=== PATIENT | female | born 1960 | race Caucasian/White ===

== ENCOUNTER → 2016-08-23 | Outpatient (CLI) | payer OTHER ==
[~2016-08-23] MED LIST: LISI-461 PO; LRT5 PO
[2016-08-23 09:35] LABS: BASO % 0.2 %; BASO ABS # 0.01 K/uL (0-0.2); COMPLETE YES; EOS % 3.9 %; HEMATOCRIT 42.8 % (37-47); IG% 0.2 %; LYMPH % 33.5 %; LYMPH ABS # 1.63 K/uL (1.2-3.4); MEAN CELL VOLUME 91.6 fL (80-100); MEAN CORPUSCULAR HEMOGLOBIN 30.4 pg (25-34); MEAN CORPUSCULAR HGB CONC 33.2 g/dl (32-36); MEAN PLATELET VOLUME 10.2 fL (7.4-10.4); MONO % 9.4 %; NEUT % 52.8 %; PLATELET COUNT 267 K/uL (130-400); RED BLOOD COUNT 4.67 M/uL (4.2-5.4); WHITE BLOOD COUNT 4.87 K/uL (4.8-10.8)
[2016-08-23 09:41] LABS: URINE APPEARANCE TURBID (CLEAR); URINE BILIRUBIN NEG (NEG); URINE COLOR DK YELLOW; URINE EPITHELIAL CELL AUTO >30 /lpf (0-5); URINE NITRITE NEG (NEG); URINE SPECIFIC GRAVITY 1.025 (1.000-1.030); UROBILINOGEN NEG (NEG)
[2016-08-23 09:43] LABS: MANUAL MICROSCOPIC REQUIRED? NO; REVIEW REQ? YES
[2016-08-23 09:47] LABS: ALT/SGPT 37 U/L (12-78); AST/SGOT 20 U/L (15-37); BLOOD UREA NITROGEN 10 mg/dl (7-18); BUN/CREATININE RATIO 14.2 (10-20); CARBON DIOXIDE 28 mmol/L (21-32); CHLORIDE 109 mmol/L (98-107); CREATININE 0.71 mg/dl (0.60-1.20); GLUCOSE 111 mg/dl (70-99); POTASSIUM 3.9 mmol/L (3.5-5.1); SODIUM 143 mmol/L (136-145)
[2016-08-23 09:58] LABS: CHOLESTEROL 237 mg/dl (0-200); HDL CHOLESTEROL 60 mg/dl; LDL CHOLESTEROL CALCULATED 134 mg/dl; TRIGLYCERIDES 215 mg/dl (0-150); VERY LOW DENSITY LIPOPROT CALC 43 mg/dl
[2016-08-23 09:59] LABS: ESTIMATED AVERAGE GLUCOSE 111 mg/dl; HA1C FLAG Normal (Normal)
== END | disposition home or self-care (01) ==
LOC: C.LAB1850 07:03
PROVIDERS: ATTEND Internal Medicine
DX: E78.00 Pure hypercholesterolemia, unspecified (principal)

== ENCOUNTER → 2016-09-15 | Outpatient (CLI) | payer OTHER, BC ==
--- NOTE | 2016-09-18 07:43 | MAMMOGRAPHY REPORT ---
BILATERAL DIGITAL SCREENING MAMMOGRAM TOMOSYNTHESIS WITH CAD: 09/15/2016 CLINICAL HISTORY: Routine screening. Patient has no complaints. TECHNIQUE: Breast tomosynthesis in addition to standard 2D mammography was performed. Current study was also evaluated with a Computer Aided Detection (CAD) system. COMPARISON: Comparison is made to exams dated: 01/22/2015 mammogram, 01/21/2014 mammogram, 12/04/2012 mammogram, 12/04/2011 mammogram, 11/30/2010 mammogram, and 11/29/2009 mammogram - [facility]. BREAST COMPOSITION: The tissue of both breasts is heterogeneously dense, which may obscure small mas ses. FINDINGS: No suspicious masses, calcifications, or areas of architectural distortion are noted in ei ther breast. There has been no significant interval change compared to prior exams. IMPRESSION: ACR BI-RADS CATEGORY 1: NEGATIVE There is no mammographic evidence of malignancy. A 1 year screening mammogram is recommended. The pa tient will receive written notification of the results. Approximately 10% of breast cancers are not detected with mammography. A negative mammographic report should not delay biopsy if a clinically suggestive mass is present. Consuelo Kc M.D. ah/:09/15/2016 15:33:50 Title Vehicle Service Attendant: Dana BLEDSOE(Dedrick)(M), [facility] letter sent: Normal 1/2 BI-RADS Code: ACR BI-RADS Category 1: Negative
== END | disposition home or self-care (01) ==
LOC: C.MAMM 14:34
PROVIDERS: ATTEND Internal Medicine
DX: Z12.31 Encounter for screening mammogram for malignant neoplasm of breast (principal)

== ENCOUNTER 2017-02-19 10:22 | Emergency (ER) | payer OTHER, BC ==
[~2017-02-19] VITALS: Ht 167.6 cm; Wt 72.2 kg
[2017-02-19 10:35] VITALS: TEMP 36.8; Ht 167.6 cm; Wt 72.2 kg
--- NOTE | 2017-02-19 11:00 | EMERGENCY ROOM VISIT NOTE ---
History Report prepared by Lachelleibfanta: Cindy Ruelas Under the Supervision of: Dr. Zachery Curran D.O. First contact with patient: 10:39 Chief Complaint: FLU LIKE SX Stated Complaint: STOMACH FLU,HEAD COLD,EXCESSIVE COUGHING History of Present Illness The patient is a 56 year old female who presents to the Emergency Room with complaints of persistent flu like symptoms for the past 5 days. She reports right before Theo, she came down with the stomach flu. She experienced nausea, vomiting and diarrhea. Those symptoms have resolved, but 5 days prior to arrival, she developed flu-like symptoms including a cough, congestion, sore throat and the chills. Robitussin has provided minimal relief. She denies any recent sick contacts. She has experienced no chest pain or shortness of breath. The patient states her only daily medication is for hypertension. 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 A total of 10 systems reviewed and were otherwise negative. Past Medical & Surgical Medical Problems: (1) Hypertension Social History Smoking Status: Never Smoker Alcohol Use: occasionally Drug Use: none Marital Status: Housing Status: lives with family Occupation Status: employed Current/Historical Medications Scheduled Azithromycin (Zithromax), 250 MG PO DAILY Lisinopril (Zestril), 10 MG PO DAILY Scheduled PRN Guaifenesin/Codeine (Robitussin-Ac Syrup), 10 ML PO Q4H PRN for Cough Allergies Coded Allergies: No Known Allergies (Unverified , 02/19/17) Physical Exam Vital Signs Date Time Temp Pulse Resp B/P (MAP) Pulse Ox O2 Delivery O2 Flow Rate FiO2 02/19/17 12:22 88 16 115/76 98 02/19/17 11:30 82 20 140/65 97 Room Air 02/19/17 10:35 36.8 83 20 140/78 96 Room Air Physical Exam GENERAL: Patient is awake, alert, in no acute distress, patient is resting comfortably and showing no signs of anxiety EYES: The conjunctivae are clear. The pupils are round and reactive. EARS, NOSE, MOUTH AND THROAT: The nose is without any evidence of any deformity. Mucous membranes are moist tongue is midline NECK: The neck is nontender and supple. RESPIRATORY: Normal respiratory effort is noted there is no evidence of wheezing rhonchi or rales CARDIOVASCULAR: Regular rate and rhythm noted there no murmurs rubs or gallops normal S1 normal S2 GASTROINTESTINAL: The abdomen is soft. Bowel sounds are present in all quadrants. Abdomen is nontender MUSCULOSKELETAL/EXTREMITIES: There is no evidence of gross deformity full range of motion is noted in the hips and shoulders SKIN: There is no obvious evidence of any rash. There are no petechiae, pallor or cyanosis noted. NEUROLOGIC: Patient is awake alert and oriented x3 Medical Decision & Procedures ER Provider Diagnostic Interpretation: Radiology results as stated below per my review and radiologist interpretation: TWO VIEW CHEST CLINICAL HISTORY: Cough. FINDINGS: PA and lateral chest radiographs are obtained. No prior studies are available for comparison at the time of dictation. The cardiomediastinal silhouette is unremarkable. There is minimal bibasilar atelectasis. The lungs and pleural spaces are otherwise clear. There is no pneumothorax. The bony thorax appears intact. IMPRESSION: No active disease in the chest. Electronically signed by: Art Vance M.D. 02/19/2017 11:30 AM Laboratory Results Test 02/19/17 11:22 Influenza Type A Antigen Neg for Influ A (NEG) Influenza Type B Antigen Neg for Influ B (NEG) Laboratory results per my review. Medications Administered Medications (Trade) Dose Ordered Sig/Pati Route Start Time Stop Time Status Last Admin Dose Admin Azithromycin (Zithromax Tab) 500 mg STK-MED ONCE .ROUTE 02/19/17 12:17 02/19/17 12:18 DC 02/19/17 12:18 500 MG ED Course 1054: The patient was evaluated in room C3. A complete history and physical examination were performed. 1217: Zithromax 500 mg PO. 1220: I reevaluated the patient. She is resting comfortably. I discussed her results and discharge instructions and she verbalized complete understanding and agreement. Medical Decision The patient is a 56-year-old female who presented to the emergency department for an evaluation of cough and upper respiratory symptoms. The patient states that she had sinus congestion as well as cough. The patient's chest x-ray did not show signs of pneumonia. The patient's flu swab was negative. I started the patient on a course of Zithromax. She was encouraged to continue using Motrin and Tylenol for pain and consider using a nasal spray such as Flonase. Otherwise she was encouraged to follow-up with her primary care physician for further evaluation but return to the emergency department immediately if symptoms change worsen or the need arises. Medication Reconcilliation Current Medication List: was personally reviewed by me Blood Pressure Screening Patient's blood pressure: Elevated blood pressure Blood pressure disposition: Elevated BP felt to be situational Impression Primary Impression: Acute bronchitis Scribe Attestation The scribe's documentation has been prepared under my direction and personally reviewed by me in its entirety. I confirm that the note above accurately reflects all work, treatment, procedures, and medical decision making performed by me. Departure Information Dispostion Home / Self-Care Prescriptions Azithromycin (ZITHROMAX) 250 Mg Tab 250 MG PO DAILY, #4 TAB Prov: Zachery Curran, 02/19/17 Referrals Roscoe Soto M.D. (PCP) Patient Instructions Bronchitis Acute, My [facility] Additional Instructions Continue using Motrin and Tylenol as directed for pain. Call your family to schedule a follow-up appointment. Consider using a nasal spray such as Flonase for congestion.
[2017-02-19] MEDS ORDERED: GUAISYP4 PO (11:12)
--- NOTE | 2017-02-19 11:31 | DIAGNOSTIC IMAGING REPORT ---
TWO VIEW CHEST CLINICAL HISTORY: Cough. FINDINGS: PA and lateral chest radiographs are obtained. No prior studies are available for comparison at the time of dictation. The cardiomediastinal silhouette is unremarkable. There is minimal bibasilar atelectasis. The lungs and pleural spaces are otherwise clear. There is no pneumothorax. The bony thorax appears intact. IMPRESSION: No active disease in the chest. Electronically signed by: Art Vance M.D. 02/19/2017 11:30 AM Dictated Date/Time: 02/19/2017 11:27 AM
[2017-02-19 12:06] LABS: INFLUENZA B ANTIGEN Neg for Influ B (NEG)
[2017-02-19] MEDS ORDERED: AZIT250T PO (12:11)
[2017-02-19] MEDS ORDERED: AZITHROMYCIN 250 MG TAB ONE (12:17)
[2017-02-19 12:22] VITALS: BP 115/76; PULSE 88; O2SAT 98
[2017-02-19 12:44] LABS: INFLUENZA A PCR Neg for Influ A (NEG); INFLUENZA B PCR Neg for Influ B (NEG)
[2017-04-10] MEDS ORDERED: MULT-506 PO (09:08)
[2017-07-16] MEDS ORDERED: ONDA4TAB46 PO (16:15)
[2017-07-16] MEDS ORDERED: TAMS0.4C38 PO (16:15)
[2017-07-16] MEDS ORDERED: OXYC-737 PO (16:15)
[2017-07-22] MEDS ORDERED: IBUP-1050 PO (04:54)
[2017-07-22] MEDS ORDERED: OXYC-737 PO (04:54)
[2017-07-22] MEDS ORDERED: ONDA4TAB46 PO (04:54)
[2017-07-22] MEDS ORDERED: TAMS0.4C38 PO (04:54)
[2017-07-22] MEDS ORDERED: CPR500 PO (12:01)
[2017-07-22] MEDS ORDERED: RXC5 PO (12:01)
== END 2017-02-19 12:22 | disposition home or self-care (01) ==
LOC: C.EDB 10:23 → C.EDC 12:22
DX: J20.9 Acute bronchitis, unspecified (principal); R19.7 Diarrhea, unspecified; I10 Essential (primary) hypertension; Z79.899 Other long term (current) drug therapy

== ENCOUNTER → 2017-04-18 | Day surgery (SDC) | payer OTHER, BC ==
[2017-04-10 09:09] VITALS: Ht 167.6 cm; Wt 71.4 kg
[~2017-04-18] VITALS: Ht 167.6 cm; Wt 71.4 kg
[~2017-04-18] MED LIST changes: +LIDOCAINE HCL 2% 2 ML VIAL (20MG/ML) ONE; -LRT5 PO; +MIDAZOLAM HCL 1 MG/ML 2ML VIAL ONE; +MULT-506 PO; +PROPOFOL IV EMULSION 10 MG/ML 20 ML VIAL IV ONE; +SODIUM CHLORIDE 0.9% 500ML 500 ML IV ONE
--- NOTE | 2017-04-18 14:22 | Endo History and Physical ---
History & Physical Date of Service: Apr 18, 2017. Chief Complaint: screening Referring Physician: Dr. Roscoe Soto History of Present Illness 56 yo CF who presents for screening colonoscopy. Past Surgical History Hx Cardiac Surgery: No Hx Internal Defibrillator: No Hx Pacemaker: No Hx Abdominal Surgery: Yes (BILATERAL TUBAL LIGATION) Hx of Implantable Prosthesis: No Hx Post-Op Nausea and Vomiting: No Hx Cancer Surgery: No Hx Thoracic Surgery: No Hx Orthopedic: No Hx Urinary Tract Surgery: No Family History None Social History Smoking Status: Never Smoker Hx Substance Use: No Hx Alcohol Use: Yes (SOCIALLY) Allergies Coded Allergies: No Known Allergies (Verified , 04/18/17) Current Medications Reported Home Medications Medications Dose Route/Sig Max Daily Dose Days Date Category Multivitamin (Multivitamins) Tab 1 Tab PO DAILY 04/10/17 Reported Zestril (Lisinopril) 10 Mg Tab 10 Mg PO QAM 09/16/06 Reported Vital Signs Weight (Kilograms): 71.36 Height (Feet): 5 Height (Inches): 6 Date Time Temp Pulse Resp B/P (MAP) Pulse Ox O2 Delivery O2 Flow Rate FiO2 04/18/17 14:17 36.7 87 18 138/81 (100) 98 Room Air Physical Exam General Appearance: WD/WN, no apparent distress Respiratory/Chest: Auscultation: breath sounds normal Cardiovascular: Heart Auscultation: RRR Abdomen: Bowel Sounds: normal Inspection & Palpation: soft, non-distended, no tenderness, guarding & rebound Assessment and Plan Assessment: 56 yo CF who presents for screening colonoscopy. Plan: Proceed with colonoscopy.
--- NOTE | 2017-04-18 15:53 | Discharge Instructions ---
Endoscopy Patient Instructions Date / Procedure(s) Performed Apr 18, 2017. Colonoscopy Allergy Information Coded Allergies: No Known Allergies (Verified , 04/18/17) Discharge Date / Findings Apr 18, 2017. Internal hemorrhoids Medication Instructions OK to resume all medications today as prescribed Reported Home Medications Medications Dose Route/Sig Max Daily Dose Days Date Category Multivitamin (Multivitamins) Tab 1 Tab PO DAILY 04/10/17 Reported Zestril (Lisinopril) 10 Mg Tab 10 Mg PO QAM 09/16/06 Reported Provider Instructions Activity Restrictions - No exercising or heavy lifting for 24 hours. - Do not drink alcohol the day of the procedure. - Do not drive a car or operate machinery until the day after the procedure. - Do not make any important decisions or sign important papers in 24 hours after the procedure. Following Day: - Return to full activity which may include returning to work/school. Diet Start your diet with liquids and light foods (jello, soup, juice, toast). Then eat your usual diet if not nauseated. Treatment For Common After Affects For mild abdominal pain, bloating, or excessive gas: - Rest - Eat lightly - Lie on right side Follow-Up Information Follow-up with Dr. Roscoe Soto as scheduled Anesthesia Information What You Should Know You have had a procedure that required some medicine to reduce anxiety and discomfort. This treatment is called moderate sedation. After receiving the treatment, you may be sleepy, but you will be able to breathe on your own. The effects of the treatment may last for several hours. Follow these instructions along with Activity/Diet recommendations noted above: * Do NOT do anything where dizziness or clumsiness would be dangerous. * Rest quietly at home today, then you can be up and about tomorrow. * Have a responsible person stay with you the rest of today. * You may have had an I.V. today. If so, you may take the dressing off later today. Recommendations Call your doctor if: * Trouble breathing * Continuous vomiting for more than 24 hours * Temperature above 101 degrees * Severe abdominal pain or bloating * Pain not relieved by pain medicine ordered * There is increased drainage or redness from any incision * A large amount of rectal bleeding greater than 2-3 tablespoons. (If you had a polyp/s removed or have hemorrhoids, a small amount of blood - from the rectum is to be expected.) * You have any unanswered questions or concerns. IN THE EVENT OF A SERIOUS EMERGENCY, GO TO THE NEAREST EMERGENCY ROOM Your discharge instructions were prepared by provider Kobe Lares. Patient Instructions Signature Page Vita Meyers Patient (or Guardian) Signature/Date: I have read and understand the instructions given to me by my caregivers. Caregiver/RN/Doctor Signature/Date: The above-named patient and/or guardian has received patient instructions on this date. + Original Patient Signature Page (only) stays with chart. Please make copy for patient.
[2017-04-18 16:21] VITALS: BP 120/71; PULSE 80; O2SAT 100
--- NOTE | 2017-04-18 16:21 | Anesthesiology Progress Note ---
Anesthesia Post Op Note Date & Time Apr 18, 2017 at 16:21 Vital Signs Pain Intensity: 0 Vital Signs Past 12 Hours Date Time Temp Pulse Resp B/P (MAP) Pulse Ox O2 Delivery O2 Flow Rate FiO2 04/18/17 16:06 89 16 122/69 (86) 98 Room Air 04/18/17 15:51 96 16 122/69 (86) 99 Room Air 04/18/17 14:17 36.7 87 18 138/81 (100) 98 Room Air Notes Mental Status: alert / awake / arousable, participated in evaluation Pt Amnestic to Procedure: Yes Nausea / Vomiting: adequately controlled Pain: adequately controlled Airway Patency, RR, SpO2: stable & adequate BP & HR: stable & adequate Hydration State: stable & adequate Anesthetic Complications: no major complications apparent
--- NOTE | 2017-04-18 16:22 | GI REPORT ---
Procedure Date: 04/18/2017 3:15 PM Procedure: Colonoscopy Indications: Screening for colorectal malignant neoplasm Medicines: Monitored Anesthesia Care Complications: No immediate complications. Estimated Blood Loss: Estimated blood loss: none. Procedure: Pre-Anesthesia Assessment: - Prior to the procedure, a History and Physical was performed, and patient medications and allergies were reviewed. The patient's tolerance of previous anesthesia was also reviewed. The risks and benefits of the procedure and the sedation options and risks were discussed with the patient. All questions were answered, and informed consent was obtained. Prior Anticoagulants: The patient has taken no previous anticoagulant or antiplatelet agents. ASA Grade Assessment: II - A patient with mild systemic disease. After reviewing the risks and benefits, the patient was deemed in satisfactory condition to undergo the procedure. After I obtained informed consent, the scope was passed under direct vision. Throughout the procedure, the patient's blood pressure, pulse, and oxygen saturations were monitored continuously. The scope was introduced through the anus and advanced to the terminal ileum. The colonoscopy was performed without difficulty. The patient tolerated the procedure well. The quality of the bowel preparation was good. The terminal ileum, ileocecal valve, appendiceal orifice, and rectum were photographed. Findings: The perianal and digital rectal examinations were normal. Non-bleeding internal hemorrhoids were found during retroflexion. The hemorrhoids were small. Impression: - Non-bleeding internal hemorrhoids. - No specimens collected. Recommendation: - Resume previous diet. - Continue present medications. - Repeat colonoscopy in 10 years for surveillance. - Return to primary care physician as previously scheduled. Kobe Lares DO 04/18/2017 4:21:54 PM This report has been signed electronically. Note Initiated On: 04/18/2017 3:15 PM I attest to the content of the Intraoperative Record and orders documented therein, exceptions below
== END | disposition home or self-care (01) ==
LOC: C.GI 13:37
PROVIDERS: ATTEND Internal Medicine
DX: Z12.11 Encounter for screening for malignant neoplasm of colon (principal); K64.8 Other hemorrhoids; I10 Essential (primary) hypertension

== ENCOUNTER → 2017-09-18 | Outpatient (CLI) | payer OTHER, BC ==
[~2017-09-18] MED LIST changes: +CPR500 PO; +IBUP-1050 PO; -LIDOCAINE HCL 2% 2 ML VIAL (20MG/ML) ONE; -MIDAZOLAM HCL 1 MG/ML 2ML VIAL ONE; +ONDA4TAB46 PO; +OXYC-737 PO; -PROPOFOL IV EMULSION 10 MG/ML 20 ML VIAL IV ONE; +RXC5 PO; -SODIUM CHLORIDE 0.9% 500ML 500 ML IV ONE; +TAMS0.4C38 PO
--- NOTE | 2017-09-19 14:54 | MAMMOGRAPHY REPORT ---
BILATERAL DIGITAL SCREENING MAMMOGRAM TOMOSYNTHESIS WITH CAD: 09/18/2017 CLINICAL HISTORY: Routine screening. Patient has no complaints. Asymmetry. TECHNIQUE: The study was acquired using full field digital technology and interpreted from soft copy. Breast tomosynthesis in addition to standard 2D mammography was performed. Current study was also ev aluated with a Computer Aided Detection (CAD) system. COMPARISON: Comparison is made to exams dated: 09/15/2016 mammogram, 01/22/2015 mammogram, 01/21/2014 m ammogram, 12/04/2012 mammogram, 12/04/2011 mammogram, and 11/30/2010 mammogram - [facility]. BREAST COMPOSITION: The tissue of both breasts is heterogeneously dense, which may obscure small mass es. FINDINGS: There is a questionable area of architectural distortion in the anterior right breast along the posterior nipple line on CC tomosynthesis slice 59/80, which could represent normal overlapping tissues although additional spot compression tomosynthesis views and possible ultrasound are recommen ded. No other suspicious mass, architectural distortion or cluster of microcalcifications is seen. IMPRESSION: ACR BI-RADS CATEGORY 0: INCOMPLETE EVALUATION: NEED ADDITIONAL IMAGING EVALUATION The questionable area of architectural distortion in the anterior right breast on the CC tomosynthesi s images needs additional evaluation. The patient will be called to schedule an appointment. Some breast cancers are not detected with mammography. A negative mammographic report should not willy y biopsy if a clinically suggestive mass is present. Ale Livingston M.D. ay/:09/18/2017 16:25:52 Landscape Account Manager: RT Chiquita(R)(M), [facility] letter sent: Addl Imaging 0 BI-RADS Code: ACR BI-RADS Category 0: Incomplete Evaluation: Need Additional Imaging Evaluation
== END | disposition home or self-care (01) ==
LOC: C.MAMM 12:17
PROVIDERS: ATTEND Internal Medicine
DX: Z12.31 Encounter for screening mammogram for malignant neoplasm of breast (principal); N64.89 Other specified disorders of breast

== ENCOUNTER → 2017-09-27 | Outpatient (CLI) | payer OTHER, BC ==
--- NOTE | 2017-09-27 15:14 | MAMMOGRAPHY REPORT ---
UNILATERAL RIGHT DIGITAL DIAGNOSTIC MAMMOGRAM TOMOSYNTHESIS: 09/27/2017 CLINICAL HISTORY: Callback from screening mammogram for possible right breast architectural distortio n. TECHNIQUE: The study was acquired using full field digital technology and interpreted from soft copy. Breast tomosynthesis in addition to standard 2D mammography was performed. Spot compression right c c and full right CC 2D and tomosynthesis images were obtained. COMPARISON: Comparison is made to exams dated: 09/18/2017 mammogram, 09/15/2016 mammogram, 01/22/2015 m ammogram, 11/30/2010 mammogram, 07/13/2010 mammogram, and 12/02/2009 ultrasound - [facility]. BREAST COMPOSITION: The tissue of right breast is heterogeneously dense, which may obscure small mass es. FINDINGS: The previously described area of possible architectural distortion in the right anterior breast on th e CC view effaces on additional images. Normal fibroglandular tissue is seen in this region which ap pears similar to multiple prior exams, without suspicious mass, architectural distortion, or other haynes spicious abnormality seen on the additional images. Findings are benign and compatible with normal f ibroglandular tissue. IMPRESSION: ACR BI-RADS CATEGORY 2: BENIGN No persistent architectural distortion seen within the right anterior breast on the additional views. Findings are benign and compatible with normal fibroglandular tissue. There is no mammographic tim dence of malignancy. A 1 year screening mammogram is recommended.(09/28/2018) The patient has been v erbally notified of the results. Some breast cancers are not detected with mammography. A negative mammographic report should not willy y biopsy if a clinically suggestive mass is present. Consuelo Kc M.D. /:09/27/2017 10:10:40 Er Physician: Berenice Beck, [facility] [address] letter sent: Normal 1/2 BI-RADS Code: ACR BI-RADS Category 2: Benign
== END | disposition home or self-care (01) ==
LOC: C.MAMM 09:36
PROVIDERS: ATTEND Internal Medicine
DX: Z00.00 Encounter for general adult medical examination without abnormal findings (principal); R92.8 Other abnormal and inconclusive findings on diagnostic imaging of breast

== ENCOUNTER 2019-10-07 19:44 | Observation (INO) ==
[2019-10-07] MEDS ORDERED: SODIUM CHLORIDE 0.9% 1000ML 1,000 ML IV ONE (19:51)
[2019-10-07] MEDS ORDERED: KETOROLAC TROMETHAMINE 15 MG/ML VIAL IV STA ×2 (19:51→21:36)
--- NOTE | 2019-10-07 20:13 | Emergency Department Note ---
History of Present Illness General Chief Complaint: Kidney Stone Stated Complaint: kidney stone Time Seen by Provider: 10/07/19 19:50 History of Present Illness Provider Complaint: flank pain Onset (ago): 3 week(s) Pain Consistency: constant Location: L flank Radiation: suprapubic Migration to: no migration Severity: moderate Maximum Pain Intensity: 8 Current Pain Intensity: 8 Quality: + stabbing and + sharp Relieved By: + nothing Exacerbated By: + nothing Context: + history of similar episodes (Similar plane with kidney stones.); no foreign travel, no possible food poisoning, no recent antibiotic use and no recent surgery/procedure Associated Symptoms: no nausea, no vomiting, no diarrhea, no fever, no chills, no dysuria, no hematemesis, no hematochezia, no melena, no hematuria, no headache, no chest pain and no breathing difficulty Home Medications Home Medications Medication Instructions Recorded Confirmed Type multivitamin 1 tab PO QAM 05/31/18 10/07/19 History tamsulosin 0.4 mg capsule 0.4 mg PO DAILY #30 cap 10/03/19 10/07/19 Rx acetaminophen [Tylenol Extra 500 mg PO Q6H PRN 10/04/19 10/07/19 History Strength] lisinopril 10 mg PO QAM 10/07/19 10/07/19 History Allergies Allergy/AdvReac Type Severity Reaction Status Date / Time No Known Allergies Allergy Mild Verified 10/07/19 21:46 Past Med/Surg History Medical History Benign essential hypertension Hydronephrosis, left Hypercholesterolemia Hypertension Internal hemorrhoids Nephrolithiasis Raynaud's disease Ureteral calculus Surgical History No pertinent past surgical history Social History Smoking Status: Never smoker Preferred Language: Turkish marital status: Current Living Situation: Spouse and Family current occupational status: 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 Feels Safe at Home: Yes Review of Systems A total of 10 systems reviewed and were otherwise negative Physical Exam Vital Signs: Vital Signs - 24 hr 10/07/19 19:46 10/07/19 20:56 10/07/19 22:39 Temperature 36.6 C Temperature Source Oral Pulse Rate 71 Pulse Rate [Finger ] 70 63 Respiratory Rate 20 18 18 Respiratory Effort / Characteristics Non-Labored Sponta neous Non-Labored Sponta neous Respiratory Depth Normal Normal Blood Pressure 177/83 H Blood Pressure [Ri ght Arm] 154/76 H 152/85 H Blood Pressure Sangeetha n 114 Blood Pressure Sangeetha n [Right Arm] 102 107 Blood Pressure Pos ition [Right Arm] Sitting Sitting Pulse Oximetry 100 97 98 Oxygen Delivery Me thod Room Air Room Air Room Air Sepsis New/Unexpla ined Change in Men emeka Status N/A Sepsis Action Take n by Nursing No Action Required Physical Exam: Physical Exam GENERAL: She is oriented to person, place, and time. She appears well-developed and well-nourished. She does not appear distressed. HENT: Exam performed. -Head: Normocephalic and atraumatic. -Right Ear: External ear normal. No mastoid tenderness. -Left Ear: External ear normal. No mastoid tenderness. -Mouth/Throat: The oropharynx is clear and moist. No trismus in the jaw. No dental abscesses or uvula swelling. No oropharyngeal exudate or tonsillar abscesses. EYES: Conjunctivae and EOM are normal. Pupils are equal, round, and reactive to light. Right eye exhibits no discharge. Left eye exhibits no discharge. No scleral icterus. NECK: Normal range of motion. Neck supple. No JVD present. No spinous process tenderness present. No carotid bruit present. No rigidity. No tracheal deviation and normal range of motion present. No Brudzinski's sign and no Kernig's sign noted. CV: Normal rate, regular rhythm, normal heart sounds and intact distal pulses. There is no peripheral edema. Palpable radial pulses bue. PULM/CHEST: Effort normal and breath sounds normal. No respiratory distress. No stridor. She has no wheezes. She has no rales. -Chest Wall: She exhibits no tenderness. ABD: The abdomen is soft. Bowel sounds are normal. She has no distension. No mass is present. There is tenderness to palpation of the suprapubic area. There is no rebound, no guarding, no Sykes's sign and no tenderness at McBurney's point. Rovsig negative MUSC/SKEL: Normal range of motion. There is no peripheral edema, tenderness or deformity. LYMPH: No cervical adenopathy. NEURO: She is alert and oriented to person, place, and time. She has normal strength. No cranial nerve deficit or sensory deficit. Coordination and gait normal. GCS eye subscore is 4. GCS verbal subscore is 5. GCS motor subscore is 6. Cerebellar tests wnl. SKIN: Skin is warm and dry. She is not diaphoretic. PSYCH: She has a normal mood and affect. Behavior is normal. Judgment and thought content normal. Course Course 1950: The patient was evaluated in room B5. A complete history and physical exam was performed. EMR reviewed. Patient was seen in the emergency department on Friday October 04, 2019. On that day her blood work was within normal limits and her urine did not show any signs of infection. CT of the abdomen pelvis was done which showed a left-sided kidney stone at the UVJ measuring 5 mm with no hydronephrosis. Patient does have a history of having a left-sided ureteral stent being placed by urology [place] [address] Barreto. 2140: Vital signs stable. Labs within normal limits. Ultrasound shows no hydronephrosis. Patient still reporting a lot of pain. She asked that I discussed the case with urology about admission. Discussed case with Dr. Mcgraw who stated that the patient she brought in for pain control and he would plan on doing a procedure to remove the stone tomorrow. He asked that the patient be n.p.o. after midnight and that a KUB done in the morning and the patient be admitted [facility]. Administered Medications Discontinued Medications Sodium Chloride (Nss 1000ml) 1,000 mls @ 999 mls/hr IV .Q1H1M ONE Stop: 10/07/19 20:51 Last Infusion: 10/07/19 21:01 Dose: 0 mls/hr Documented by: [id number] Admin: 10/07/19 20:24 Dose: 999 mls/hr Documented by: [id number] Ketorolac Tromethamine (Ketorolac Tromethamine 15 Mg/Ml Vial) 15 mg IV NOW STA Stop: 10/07/19 19:52 Last Admin: 10/07/19 20:24 Dose: 15 mg Documented by: [id number] Ketorolac Tromethamine (Ketorolac Tromethamine 15 Mg/Ml Vial) 15 mg IV NOW STA Stop: 10/07/19 21:37 Last Admin: 10/07/19 21:43 Dose: 15 mg Documented by: [id number] Medical Decision Making Laboratory Data Result diagrams: 10/07/19 19:51 10/07/19 19:51 Lab Results 10/07/19 10/07/19 10/07/19 Range/Units 19:51 19:51 Unknown WBC 5.78 (4.8-10.8) K/uL RBC 4.57 (4.2-5.4) M/uL Hgb 14.3 (12.0-16.0) g/dL Hct 41.8 (37-47) % MCV 91.5 (80-100) fL MCH 31.3 (25-34) pg MCHC 34.2 (32-36) g/dL RDW Std Deviation 43.3 (36.4-46.3) fL RDW Coeff of Patrick 12.9 (11.5-14.5) % Plt Count 226 (130-400) K/uL MPV 10.9 H (7.4-10.4) fL Immature Gran % (Auto) 0.2 % Neut % (Auto) 56.2 % Lymph % (Auto) 32.4 % [place] % (Auto) 8.7 % Eos % (Auto) 2.2 % Baso % (Auto) 0.3 % Neut # (Auto) 3.25 (1.4-6.5) K/uL Lymph # (Auto) 1.87 (1.2-3.4) K/uL [place] # (Auto) 0.50 (0.11-0.59) K/uL Eos # (Auto) 0.13 (0-0.5) K/uL Baso # (Auto) 0.02 (0-0.2) K/uL Immature Gran # (Auto) 0.01 (0.00-0.02) K/uL Sodium 139 (136-145) mmol/L Potassium 3.4 L (3.5-5.1) mmol/L Chloride 106 (98-107) mmol/L Carbon Dioxide 26 (21-32) mmol/L Anion Gap 7.0 (3-11) BUN 8 (7-18) mg/dl Creatinine 0.80 (0.6-1.2) mg/dl Est Cr Clr Drug Dosing 71.8 ml/min Est GFR ( Amer) 94.2 Est GFR (Non-Af Amer) 81.3 BUN/Creatinine Ratio 10.1 (10-20) Glucose 105 H (70-99) mg/dl Calcium 9.7 (8.5-10.1) mg/dl Urine Color Yellow Urine Appearance Clear (Clear) Urine pH 6.0 (4.5-7.5) Ur Specific [place] 1.005 (1.000-1.030) Urine Protein Negative (Negative) Urine Glucose (UA) Negative (Negative) Urine Ketones Negative (Negative) Urine Blood Negative (Negative) Urine Nitrite Negative (Negative) Urine Bilirubin Negative (Negative) Urine Urobilinogen Negative (Negative) Ur Leukocyte Esterase 2+ H (Negative) Urine RBC 0-4 (0-4) /hpf Urine WBC 10-30 H (0-5) /hpf Ur Epithelial Cells 5-10 H (0-5) /lpf Calcium Oxalate Crystal Present A (None Prsent) Urine Bacteria Negative (Negative) Imaging Data Radiologist's Impression: EXAMINATION: RENAL ULTRASOUND CLINICAL HISTORY: L flank pain COMPARISON STUDY: CT scan dated 10/04/2019 FINDINGS: The right kidney measures 11 cm. The left kidney measures 10.5 cm. There is no evidence of hydronephrosis. There are no renal masses. There is a 5 mm echogenic focus at the level the left ureterovesical junction. This is suspicious for a nonobstructing calculus. The left ureteral jet appeared smaller than the right. IMPRESSION : 1. 5 mm left UVJ calculus 2. No evidence of hydronephrosis ACT 112: Negative or not required by law. Electronically signed by: Pedro Watkins M.D. 10/07/2019 8:51 PM Dictated: 10/07/192049 Transcribed: 10/07/192049 [facility] Narrative 1950: The patient was evaluated in room B5. A complete history and physical exam was performed. EMR reviewed. Patient was seen in the emergency department on Friday October 04, 2019. On that day her blood work was within normal limits and her urine did not show any signs of infection. CT of the abdomen pelvis was done which showed a left-sided kidney stone at the UVJ measuring 5 mm with no hydronephrosis. Patient does have a history of having a left-sided ureteral stent being placed by urology in [address] Barreto. 2139: Vital signs stable. Labs within normal limits. Ultrasound shows no hydronephrosis. Patient still reporting a lot of pain. She asked that I discussed the case with urology about admission. Discussed case with Dr. Mcgraw who stated that the patient she brought in for pain control and he would plan on doing a procedure to remove the stone tomorrow. He asked that the patient be n.p.o. after midnight and that a KUB done in the morning and the patient be admitted to medicine. [facility] hospitalist service Dr. Murray was notified of the patient. Impression & Plan Renal colic on left side Discharge Plan Visit Data Chief Complaint: Kidney Stone Stated Complaint: kidney stone ED Provider: Ryan Schneider Discharge Problem: Renal colic on left side Patient Disposition: Being Evaluated by Hospitalist Forms Stand Alone Forms: [facility] Prescriptions Prescriptions: No Action tamsulosin 0.4 mg capsule 0.4 mg PO DAILY Qty: 30 RF: 2 acetaminophen [Tylenol Extra Strength] 500 mg Tablet 500 mg PO Q6H PRN (Reason: Fever Or Pain) RF: 0 multivitamin Tablet 1 tab PO QAM RF: 0 lisinopril 10 mg tablet 10 mg PO QAM RF: 0 Referrals Referrals: Roscoe Soto MD [Primary Care Provider] -
[2019-10-07 20:24] LABS: Basophils # (auto) 0.02 K/uL (0-0.2); Basophils % (auto) 0.3 %; Eosinophils # (auto) 0.13 K/uL (0-0.5); Eosinophils % (auto) 2.2 %; Hematocrit (blood only) 41.8 % (37-47); Hemoglobin 14.3 g/dL (12.0-16.0); Immature Granulocytes # (auto) 0.01 K/uL (0.00-0.02); Immature Granulocytes % (auto) 0.2 %; Lymphocytes # (auto) 1.87 K/uL (1.2-3.4); Lymphocytes % (auto) 32.4 %; Mean Corpuscular Hemoglobin 31.3 pg (25-34); Mean Corpuscular Hgb Conc 34.2 g/dL (32-36); Mean Corpuscular Volume 91.5 fL (80-100); Mean Platelet Volume 10.9 fL (7.4-10.4); Monocytes % (auto) 8.7 %; Neutrophils # (auto) 3.25 K/uL (1.4-6.5); Neutrophils % (auto) 56.2 %; Platelet Count 226 K/uL (130-400); RDW Coefficient of Variation 12.9 % (11.5-14.5); RDW Standard Deviation 43.3 fL (36.4-46.3); Red Blood Count 4.57 M/uL (4.2-5.4); White Blood Count 5.78 K/uL (4.8-10.8)
[2019-10-07 20:42] LABS: BUN Creatinine Ratio 10.1 (10-20); Calcium 9.7 mg/dl (8.5-10.1); Creatinine Clr Calc Pharmacy 71.8 ml/min; Est GFR (African American) 94.2; Est GFR (Non-African American) 81.3; Potassium 3.4 mmol/L (3.5-5.1)
[2019-10-07 20:46] LABS: Appearance Urine Clear (Clear); Bilirubin Urine Negative (Negative); Blood Urine Negative (Negative); Color Urine Yellow; Glucose Urine UA Negative (Negative); Ketones Urine Negative (Negative); Leukocyte Esterase Urine 2+ (Negative); Nitrite Urine Negative (Negative); Protein Urine Negative (Negative); Specific Gravity Urine 1.005 (1.000-1.030); Urobilinogen Urine Negative (Negative)
--- NOTE | 2019-10-07 20:53 | Ultrasound Report ---
EXAMINATION: RENAL ULTRASOUND CLINICAL HISTORY: L flank pain COMPARISON STUDY: CT scan dated 10/04/2019 FINDINGS: The right kidney measures 11 cm. The left kidney measures 10.5 cm. There is no evidence of hydronephrosis. There are no renal masses. There is a 5 mm echogenic focus at the level the left ureterovesical junction. This is suspicious for a nonobstructing calculus. The left ureteral jet appeared smaller than the right. IMPRESSION : 1. 5 mm left UVJ calculus 2. No evidence of hydronephrosis ACT 112: Negative or not required by law. Electronically signed by: Pedro Watkins M.D. 10/07/2019 8:51 PM
[2019-10-07 21:09] LABS: Bacteria Urine Negative (Negative); RBC Urine 0-4 /hpf (0-4)
[2019-10-07 21:10] LABS: Calcium Oxalate Crystals Urine Present (None Prsent)
--- NOTE | 2019-10-07 22:43 | History & Physical Report ---
Date of Service October 07, 2019 Assessment & Plan (1) Nephrolithiasis: Lynn is a 59-year-old female with a past medical history of kidney stones, hypertension, and rainouts who presents with worsening pain she attributes to kidney stone. Nonobstructing left nephrolithiasis Ultrasound shows a 5 mm echogenic focus at the level the left ureterovesical junction. CT abdomen 10/03 showed 5 mm nonobstructing UVJ calculus Case discussed with urology by ED as noted in HPI. Discussed with patient that she does not require admission due to lack of obstructive findings and could trial daily Flomax with fluids as outpatient, patient reports pain is intolerable and escalating and understands that she will be placed on observation status with urology consult in the morning patient admitted under observation NSS +30 KCl 125 cc/h Continue Flomax N.p.o. 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 FEN GI: N.p.o., IV fluids as above DVT prophylaxis: SCDs, defer pharmacal prophylaxis in the setting of potential procedure Disposition: Medical surgical CODE STATUS: Full code (2) Acute left flank pain: (3) Benign essential hypertension: (4) Hypercholesterolemia: (5) Internal hemorrhoids: (6) Raynaud's disease: (7) Hypertension: History of Present Illness Chief Complaint: Abdominal pain, kidney stone Primary Care Provider: Roscoe Soto MD Lynn is a 59-year-old female with a past medical history of kidney stones, hypertension, and rainouts who presents with worsening pain she attributes to kidney stone. Lynn reports that her pain began 1 month ago with asymptomatic blood in her urine on 09/15. She was seen as an outpatient and was drinking plenty of fluids. She had a which showed mild left hydro-and possible distal left ureteral calculus. She took Flomax and fluids, and had improvement in her pain and thought that she had passed the stone. She developed increasing 10/10 pain and was seen in the ED on 10/03 which showed a 5 mm nonobstructing left UVJ calculus with no signs of obstructive changes/hydro-. She was discharged and took 1 dose of Flomax with some improvement of her pain, but then her pain returned and she has been having increasing 10/10 "excruciating "spasms of pain which are i ncreasing in frequency and now occurring about every 4 hours. Her pain is in her left/mid low abdomen. She denies fever, chills, sweats, hematuria. Is not no factors that reduce/prevent the spasms. She reports she is trying to work 6 days a week, and the pain impedes her ability to work. She reports that her last stone was smaller than 5 mm, but required anoscopy and retrieval.Her case was discussed with urology by the ED provider. Urology recommended patient be admitted with urology consult for the morning for evaluation for cystoscopy/stent. Medical history: Reviewed Medications: Reviewed Allergies: Reviewed Surgical history: Reviewed Social: Denies tobacco, alcohol, recreational drug use. No known drug allergies. CODE STATUS: Full code Allergies Allergy/AdvReac Type Severity Reaction Status Date / Time No Known Allergies Allergy Mild Verified 10/07/19 21:46 Home Medications Home Medications Medication Instructions Recorded Confirmed Type multivitamin 1 tab PO QAM 05/31/18 10/07/19 History tamsulosin 0.4 mg capsule 0.4 mg PO DAILY #30 cap 10/03/19 10/07/19 Rx acetaminophen [Tylenol Extra 500 mg PO Q6H PRN 10/04/19 10/07/19 History Strength] lisinopril 10 mg PO QAM 10/07/19 10/07/19 History Past Med/Surg History Medical History Benign essential hypertension Hydronephrosis, left Hypercholesterolemia Hypertension Internal hemorrhoids Nephrolithiasis Raynaud's disease Ureteral calculus Surgical History No pertinent past surgical history Social History Smoking Status: Never smoker Hx Alcohol Use: Yes Alcohol type: beer Hx Substance Use: No Preferred Language: Portuguese Communication Ability: Effective Customer Experience Intern Required: No Beliefs That Will Affect Care: None marital status: Current Living Situation: Spouse current occupational status: 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 NAD. Cooperative. HEENT: Atraumatic, normocephalic. Pulm: CTAB A&P. -wheezes, -rales, -rhonchi. Symmetrical chest rise. No increase work of breathing. No respiratory distress. Cardiac: RRR, -mrg. Radial pulses intact and symmetrical. Abdominal: Focally tender in the midline and left lower abdominal quadrant. No rebound tenderness. Soft, no right lower quadrant pain. No CVA tenderness. Extremities: Warm, dry. Sensation intact in fingers and toes without asymmetry. Tour Counselor strength, ankle plantarflexion/dorsiflexion 5/5. Results & Data Results & Data ([facility]) Vital Signs (Past 12 Hours) Vital Signs Temp Pulse Pulse Resp BP BP Pulse Ox 10/07/19 20:56 70 18 154/76 H 97 10/07/19 19:46 36.6 C 71 20 177/83 H 100 Code Status & VTE Plan VTE Prophylaxis Plan VTE Prophylaxis will be ordered: Yes Supervising Physician Co-Signing Physician Notes Attending addendum: I have physically seen this patient, have supervised the medical residents activities, and agree with the H&P unless as otherwise noted. Assessment and Plan: 5 mm left UVJ stone without hydronephrosis- Admit to medical surgical bed for observation NSS + KCl 30 mEq at 125 mL's per hour Continue Flomax 0.4 mg p.o. daily Acetaminophen 650 mg p.o. every 6 hours PRN mild pain or temperature Toradol 15 mg IV every 6 hours PRN moderate pain Hydromorphone 0.25 mg IV every 4 hours PRN severe pain Follow serial laboratories. Consult urology Remainder of orders and notations as noted. Resident Activity Tracking Resident Involvement: Resident Care Provided Care Provided: Adult [facility] Medicine
[2019-10-07] MEDS ORDERED: HYDROmorphone INJ 0.5 MG/0.5 ML SYR IV PRN (23:59)
[2019-10-08] MEDS ORDERED: HYDROmorphone INJ 0.5 MG/0.5 ML SYR IV PRN (00:20)
[2019-10-08] MEDS: POTASSIUM CHLORIDE 30 MEQ in SODIUM CHLORIDE 0.9% 1000ML 1,000 ML IV SCH ×2 (00:28→07:51)
[2019-10-08] MEDS ORDERED: KETOROLAC TROMETHAMINE 15 MG/ML VIAL IV PRN (03:00)
[2019-10-08 06:16] LABS: Basophils # (auto) 0.02 K/uL (0-0.2); Basophils % (auto) 0.5 %; Eosinophils # (auto) 0.14 K/uL (0-0.5); Eosinophils % (auto) 3.3 %; Hematocrit (blood only) 37.8 % (37-47); Hemoglobin 12.6 g/dL (12.0-16.0); Lymphocytes # (auto) 1.65 K/uL (1.2-3.4); Lymphocytes % (auto) 39.1 %; Mean Corpuscular Hemoglobin 30.9 pg (25-34); Mean Corpuscular Hgb Conc 33.3 g/dL (32-36); Mean Corpuscular Volume 92.6 fL (80-100); Mean Platelet Volume 11.3 fL (7.4-10.4); Monocytes # (auto) 0.37 K/uL (0.11-0.59); Monocytes % (auto) 8.8 %; Neutrophils # (auto) 2.04 K/uL (1.4-6.5); Neutrophils % (auto) 48.3 %; Platelet Count 199 K/uL (130-400); RDW Standard Deviation 44.1 fL (36.4-46.3); Red Blood Count 4.08 M/uL (4.2-5.4); White Blood Count 4.22 K/uL (4.8-10.8)
[2019-10-08 06:49] LABS: BUN Creatinine Ratio 11.2 (10-20); Creatinine Clr Calc Pharmacy 95.7 ml/min; Est GFR (African American) 116.4; Est GFR (Non-African American) 100.5; Potassium 4.1 mmol/L (3.5-5.1)
[2019-10-08] MEDS ORDERED: TAMSULOSIN HCL 0.4 MG CAP PO SCH (09:00)
[2019-10-08] MEDS ORDERED: MULTIVITAMIN TAB PO SCH (09:00)
--- NOTE | 2019-10-08 11:32 | XRay Report ---
KUB CLINICAL HISTORY: distal left ureteral stone pending OR decision COMPARISON STUDY: CT of the abdomen and pelvis October 04, 2019. KUB September 16, 2019. FINDINGS: Pelvic calcifications reflect phleboliths. The distal left ureteral calculus shown on CT of October 04, 2019 has passed. Bowel gas pattern is normal. No urinary calculi are identified. IMPRESSION: No urinary calculi identified. Interval passage of the distal left ureteral calculus ean wn on prior CT. ACT 112: Negative or not required by law. Electronically signed by: Hugh Lester M.D. 10/08/2019 11:31 AM
--- NOTE | 2019-10-08 11:45 | Consultation Report ---
DATE OF CONSULTATION: 10/08/2019 REASON FOR THE CONSULT: Left distal ureteral stone. HISTORY OF PRESENT ILLNESS: The patient is a 59-year-old female with past history of stones who also has a history of hypertension, who presents with one month history of blood in her urine. She had an ultrasound that showed some hydronephrosis and a possible distal left calculus. She presented to the Emergency Room on 10/03 with a 5 mm stone at the left UVJ, was sent home with Flomax after her pain improved, but came back with excruciating pain and spasms last night, was admitted and this morning when I saw her, her pain seems to have resolved. A KUB shows the stone seems to have passed into her bladder. She does not have any further discomfort or any further urgency. I did discuss with the patient increasing her fluid intake and increasing lemon juice intake and decreasing salt intake. I also suggested that she follow up in 1 year with a KUB. No other stones are seen on the CAT scan. HOME MEDICATIONS: Include tamsulosin and lisinopril 10 mg a day. ALLERGIES: She has no known drug allergies. PAST MEDICAL HISTORY: Includes hypertension, hemorrhoids, Raynaud's disease. PAST SURGICAL HISTORY: Significant for previous ureteroscopy. PHYSICAL EXAMINATION: GENERAL: She is a well-developed female, in no apparent distress. HEENT: Normal. LUNGS: Clear to auscultation with no respiratory distress. CARDIAC: No pedal edema. ABDOMEN: Significant for no flank pain and no abdominal pain. EXTREMITIES: Unremarkable. SKIN: Dry and warm. LYMPHADENOPATHY: Absent cervical lymphadenopathy. MUSCULOSKELETAL: She has normal extremities with normal strength. NEUROLOGIC: She is alert and oriented without any focal sensory deficits. ASSESSMENT: History of left ureteral stone. The patient has passed the stone. PLAN: We will discuss with the hospitalist that the patient can be discharged, but have her follow up in 1 year with a KUB. In the interim, we will have her increase her fluid intake, lemon juice intake and decrease her salt intake.
--- NOTE | 2019-10-09 04:16 | Billing Data ---
Date of Service October 09, 2019 Coding Level of Care Code 07141 OBS Care - Level 3
--- NOTE | 2019-10-09 09:16 | Discharge Summary ---
Date of Service October 08, 2019 Admission HPI Per Admitting Provider Lynn is a 59-year-old female with a past medical history of kidney stones, hypertension, and rainouts who presents with worsening pain she attributes to kidney stone. Lynn reports that her pain began 1 month ago with asymptomatic blood in her urine on 09/15. She was seen as an outpatient and was drinking plenty of fluids. She had a which showed mild left hydro-and possible distal left ureteral calculus. She took Flomax and fluids, and had improvement in her pain and thought that she had passed the stone. She developed increasing 10/10 pain and was seen in the ED on 10/03 which showed a 5 mm nonobstructing left UVJ calculus with no signs of obstructive changes/hydro-. She was discharged and took 1 dose of Flomax with some improvement of her pain, but then her pain returned and she has been having increasing 10/10 "excruciating "spasms of pain which are increasing in frequency and now occurring about every 4 hours. Her pain is in her left/mid low abdomen. She denies fever, chills, sweats, hematuria. Is not no factors that reduce/prevent the spasms. She reports she is trying to work 6 days a week, and the pain impedes her ability to work. She reports that her last stone was smaller than 5 mm, but required anoscopy and retrieval.Her case was discussed with urology by the ED provider. Urology recommended patient be admitted with urology consult for the morning for evaluation for cysto scopy/stent. Medical history: Reviewed Medications: Reviewed Allergies: Reviewed Surgical history: Reviewed Social: Denies tobacco, alcohol, recreational drug use. No known drug allergies. CODE STATUS: Full code Principal Diagnosis Nephrolithiasis Discharge Exam General: A&Ox3. NAD. Cooperative. HEENT: Atraumatic, normocephalic. Pulm: CTAB A&P. Symmetrical chest rise. No increase work of breathing. No respiratory distress. Cardiac: RRR, -mrg. Radial pulses intact and symmetrical. Abdominal: Focally tender in the midline and left lower abdominal quadrant. No rebound tenderness. Soft, no right lower quadrant pain. No CVA tenderness. Extremities: Warm, dry. Sensation intact in fingers and toes without asymmetry. 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 Discharge Data Allergies Allergy/AdvReac Type Severity Reaction Status Date / Time No Known Allergies Allergy Mild Verified 10/07/19 21:46 Consultations 10/07/19 21:38 ED Decision to Admit Stat 10/07/19 23:59 Consult Urology Routine Ordered Studies 10/07/19 20:03 US renal/blad retro comp Stat Hospital Course (1) Nephrolithiasis: Lynn is a 59-year-old female with a past medical history of kidney stones, hypertension, and rainouts who presents with worsening pain she attributes to kidney stone. Nonobstructing left nephrolithiasis On admission: Ultrasound shows a 5 mm echogenic focus at the level the left ureterovesical junction. CT abdomen 10/03 showed 5 mm nonobstructing UVJ calculus Case discussed with urology by ED as noted in HPI. Discussed with patient that she does not require admission due to lack of obstructive findings and could trial daily Flomax with fluids as outpatient, patient reports pain is intolerable and escalating and understands that she will be placed on observation status with urology consult in the morning patient admitted under observation NSS +30 KCl 125 cc/h Continue Flomax N.p.o. at midnight Tylenol 650 mg every 6 hours PRN Toradol 15 mg every 6 hours as needed Hydromorphone 0.25/0.5 mg IV every 4 hours PRN for breakthrough pain not controlled by above No sign of hydro/obstruction, creatinine normal Given patient is not having dysuria, no leukocytosis, no bacteria in urine without any obstruction or stasis defer antibiotics at this time CBC, BMP daily On day of discharge, discussed with Urologist that the patient can be discharged as she spontaneously passed her stone. Will remain on flomax for about 1 more week. Patient would need to have her follow up in 1 year with a [facility]. In the interim, we will have her increase her fluid intake, lemon juice intake and decrease her salt intake. Patient is agreeable to discharge and is pain free. 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 (2) Acute left flank pain: (3) Benign essential hypertension: (4) Hypercholesterolemia: (5) Internal hemorrhoids: (6) Raynaud's disease: (7) Hypertension: Total Time Total Time Spent Total Time Spent (In Minutes): 32 Discharge Plan Discharge Items Patient Disposition: Home - Self-Care Reason For Visit: RENAL STONE, PAIN Discharge Diagnosis: renal stone Activity: Resume your previous activity Non-emergency contact: Primary Care Provider Call non-emergency contact if: you have any medication questions Follow-up/Referrals: Roscoe Soto MD [Primary Care Provider] - Diet: Heart Healthy Addtl Attending Provider Instructions: You have been hospitalized for an acute medical problem. During your stay at [facility], we have made an effort to correct the problem that brought you to the hospital while keeping you as comfortable as possible. Medications were used to bring your condition under control and your discharge instructions will include directions for any medications you should take after leaving the hospital. Please make sure you see your Primary Care Provider as part of your follow up plan. You passed your stone. Will recommend to continue tamsulosin for 7 more days to help ensure the passage of the stone Will also recommend to followup with Nephrology for preventative treatment for future stones. Pending Studies at Discharge: No Stand-Alone Forms: My [facility], Smoking Cessation Medications and DC Order Prescriptions: Continued tamsulosin 0.4 mg capsule 0.4 mg PO DAILY Qty: 30 RF: 2 acetaminophen [Tylenol Extra Strength] 500 mg Tablet 500 mg PO Q6H PRN (Reason: Fever Or Pain) RF: 0 multivitamin Tablet 1 tab PO QAM RF: 0 lisinopril 10 mg tablet 10 mg PO QAM RF: 0 Discharge Orders: Discharge Order (Routine); Ordered 10/08/19 Ordered By: Brian Bill Admission Data Admit Date/Time: 10/07/19 22:28 Attending Provider: Brain Bill Admit Provider: Rishi Hurley Primary Care Provider: Roscoe Soto Other Providers: Cooper Bhakta ; Dwight Mcgraw Other Interventions: Discharge Summary Assessment (RN) Last Done: 10/08/19 12:26 Coding Level of Care Code 30697 OBS Care - Discharge Diagnoses Nephrolithiasis N20.0 Acute left flank pain R10.9 Benign essential hypertension I10 Hypercholesterolemia E78.00 Internal hemorrhoids K64.8 Raynaud's disease I73.00 Hypertension I10 Time Spent (min) 32
== END 2019-10-08 13:12 | disposition home or self-care (01) ==
LOC: 3N 19:44 → ED 19:44 → SUATTDRO 22:28 → 3N 23:31